=== PATIENT | male | born 1995 | race Caucasian/White ===

== ENCOUNTER 2024-06-25 18:47 | Emergency (ER) | payer OTHER, SELFPAY ==
--- OUTSIDE RECORDS SUMMARY | 2024-06-25 18:49 | XMS_ITS | Clinical Summary ---
Author Organization [facility] Address [address] [place] [address] Phone Care Team Providers Care Jack Frame Tender Name Role Phone Kayden Casper Primary Care Provider [phone] Social History Tobacco Use Types Packs/Day Years Used Date Smoking Tobacco: Never Assessed Sex and Gender Information Value Date Recorded Sex Assigned at Not on file Legal Sex Male 10:21 PM CDT Gender Identity Not on file Sexual Orientation Not on file Plan of Treatment Health Maintenance Due Date Last Done Comments Hepatitis C Virus (HCV) Screening 1993 TdaP Immunization 1993 Hepatitis B Immunization (1 of 3 - 19+ 3-dose series) 2012 Influenza Immunization (#1) 2023 SARS-COV-2 Immunization ( - 2023- season) 2023 Respiratory Syncytial Virus (RSV) Immunization (Adult) (1 - 1-dose 75+ series) 2068 Meningococcal Immunization (ACWY) Aged Out No longer eligible based on patient's age to complete this topic Pneumococcal Immunization Combined Aged Out No longer eligible based on patient's age to complete this topic Rotavirus Immunization Aged Out No lo nger eligible based on patient's age to complete this topic Care Teams Jack Frame Tender Relationship Specialty Start Date End Date Kayden Casper PAC [address] [place] [address] PCP - General Physician Manager Grant 09/24/16
--- OUTSIDE RECORDS SUMMARY | 2024-06-25 18:49 | XMS_ITS | Clinical Summary ---
Author Organization [facility] Address [address] [place] [address] Care Team Providers Care Pad Assembler Name Role Phone Kayden Casper Primary Care Provider [phone] Allergies No known active allergies Medications aspirin 325 mg EC tablet Take 1 tablet by mouth every 12 hours until finished 30 tablet 12/23/2017 Active HYDROcodone-manjit taminophen (NORCO) 5-325 mg per tabletIndicatio ns:Pain Take 1-2 tablets by mouth every 4-6 hours as needed for pain 13 tablet 12/23/2017 Active ascorbic acid (VITAMIN C) 500 mg tablet,chewable Take 1 tablet by mouth 2 times daily until finished 60 tablet/chew tab 12/23/2017 Active Active Problems Problem Noted Date Diagnosed Date Acute lateral meniscus tear of right knee 2017 Overview (12/16/2017): Added automatically from request for surgery [id number] Left knee pain 12/16/2017 Overview (12/16/2017): Added automatically from request for surgery [id number] Recurrent dislocation of left patella 12/16/2017 Overview (12/16/2017): Added automatically from request for surgery [id number] Loose body of left knee 12/16/2017 Overview (12/16/2017): Added automatically from request for surgery [id number] Surgical History Surgery Date Site/Laterality Comments APPENDECTOMY Family History Medical History Relation Name Comments No Known Problems Brother No Known Problems Daughter No Known Problems Father No Known Problems Mother No Known Problems Other No Known Problems Sister No Known Problems Son Relation Name Status Comments Brother Daughter Father Mother Other Sister Son Social History Tobacco Use Types Packs/Day Years Used Date Smoking Tobacco: Never Smokeless Tobacco: Never Alcohol Use Standard Drinks/Week Comments Yes 0 (1 standard drink = 0.6 oz pur e alcohol) occasionally Sex and Gender Information Value Date Recorded Sex Assigned at Not on file 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 Gender Identity Not on file Sexual Orientation Not on file Obstetrics History Last Filed Vital Signs Vital Sign Reading Time Taken Comments Blood Pressure 140/93 09/09/2018 3:33 PM CDT Pulse 84 09/09/2018 3:33 PM CDT Temperature 36.3 C (97.4 F) 12/31/2017 4:00 PM CDT Respiratory Rate 18 12/31/2017 4:00 PM CDT Oxygen Saturation 98% 12/31/2017 4:00 PM CDT Inhaled Oxygen Concentration - - Weight 94.5 kg (208 lb 6.4 oz) 09/09/2018 3:33 P M CDT Height 172.7 cm (5' 8 ) 09/09/2018 3:33 PM CDT Body Mass Index 31.69 09/09/2018 3:33 PM CDT Plan of Treatment Not on file Medical Devices Implanted Type Area Service Promoter Salesperson Device Identifier Shelf Expiration Date Model / Serial / Lot Allosource [id number] Frozen Aseptic Graft Soft Tissue Posterior Tibialis Tendon - [id number] - [id number] Implanted:Qty: 1 on 12/31/2017 by Bert Adkins MD at [facility] Left: Knee [employer] 01/11/2022 [id number] / [id number] / Description:Wasted 14.7cm le ngth Implant total length: 29.4cm Single Diameter: 5.5mm Folded Diameter: 9mm [employer] Ar-1360c-Cp 4.5mm 6mm Cannulated Drill Guidepin Interference Screw Reamer - [id number] Implanted:Qty: 1 on 12/31/2017 by Bert Adkins MD at [facility] Left: Knee [employer] 08/18/2019 AR-1360C-CP / / [id number] Insurance [employer] OPEN ACCESS Care Teams Pad Assembler Relationship Specialty Start Date End Date Kayden Casper PA [address] [place] [address] PCP - General 06/10/16
--- OUTSIDE RECORDS SUMMARY | 2024-06-25 18:49 | XMS_ITS | Referral Summary ---
Author Organization [facility] Address [address] [place] [address] Care Team Providers Care Barrel Roller Operator Name Role Phone Kayden Casper Primary Care Provider [phone] Allergies No known active allergies Medications aspirin [...] (12/16/2017): Added automatically from request for surgery [id number] Left knee pain 12/16/2017 Overview (12/16/2017): Added automatically from request for surgery [id number] Recurrent dislocation of left patella 12/16/2017 Overview (12/16/2017): Added automatically from request for surgery [id number] Loose body of left knee 12/16/2017 Overview (12/16/2017): Added automatically from request for surgery [id number] Social History Tobacco Use Types Packs/Day Years Used Date Smoking Tobacco: Never Smokeless Tobacco: Never Alcohol Use Standard Drinks/Week Comments Yes 0 (1 standard drink = 0.6 oz pur e alcohol) occasionally Sex and Gender Information Value Date Recorded Sex Assigned at Not on file 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 Gender Identity Not on file Sexual Orientation Not on file Last Filed Vital Signs Vital Sign Reading [...] on file Medical Devices Implanted Type Area Chief Dispatcher Device Identifier Shelf Expiration Date Model / Serial / Lot Allosource [id number] Frozen Aseptic Graft Soft Tissue Posterior Tibialis Tendon - [id number] - [id number] Implanted:Qty: 1 on 12/31/2017 by Bert Adkins MD at [facility] Left: Knee [employer] 01/11/2022 [id number] / [id number] / Description:Wasted 14.7cm le ngth Implant total length: 29.4cm Single Diameter: 5.5mm Folded Diameter: 9mm [employer] Ar-1360c-Cp 4.5mm 6mm Cannulated Drill Guidepin Interference Screw Reamer - [id number] Implanted:Qty: 1 on 12/31/2017 by Bert Adkins MD at [facility] Left: Knee [employer] 08/18/2019 GUERO-1360C-CP / / [id number] Insurance [facility] [address] OPEN ACCESS Care Teams Barrel Roller Operator Relationship Specialty Start Date End Date Kayden Casper PA [address] [place] [address] PCP - General 06/10/16
[2024-06-25 18:59] VITALS: BP 150/98; PULSE 79; RESP 16; TEMP 36.4; O2SAT 99
--- NOTE | 2024-06-25 19:12 | ED.GENADULT ---
HPI - General Adult General Chief complaint: Wound/Laceration Stated complaint: Right hand finger lac Source: patient Mode of arrival: ambulatory Limitations: no limitations History of Present Illness HPI narrative: Patient presents for evaluation of a laceration to the 3rd digit of the right hand. He cut himself while doing dishes 2 hours ago. He cleaned the laceration well known applied a dressing. He reassessed the wound about an hour after placing the dressing and noted bleeding, which prompted him to come in for further evaluation. He denies loss of ROM. States pain is mild, without numerical rating or descriptive quality. Denies paresthesias. He is right hand dominant. He believes his last tetanus was in 2014. Related Data Home Medications ?Medication ?Instructions ?Recorded ?Confirmed ?Last Taken ?Type escitalopram oxalate .ROUTE 06/25/24 Unknown History Allergies Allergy/AdvReac Type Severity Reaction Status Date / Time No Known Allergies Allergy Verified 06/25/24 18:55 Review of Systems Review of Systems: CONSTITUTIONAL: Denies fever, chills, or sweats. EYES: Denies visual changes, redness, or discharge. ENT: Denies rhinorrhea, congestion, sore throat, or otalgia. CARDIOVASCULAR: Denies chest pain, palpitations, or edema. RESPIRATORY: Denies cough or dyspnea. GASTROINTESTINAL: Denies abdominal pain, nausea, vomiting, or diarrhea. GENITOURINARY: Denies dysuria or hematuria. SKIN: Reports laceration to the 3rd digit of the right hand MUSCULOSKELETAL: Denies back pain, joint pain, or myalgia. NEUROLOGIC: Denies headache, numbness, dizziness, or weakness. PSYCHIATRIC: Denies anxiety or depression. [facility] Past Medical History Medical History Depression Surgical History Surgical History No pertinent past surgical history Family History Family History (Updated 06/25/24 @ 20:19 by BRADLY Ott, HARJIT) Mother Family history non-contributory Social History Social History Smoking status: Never smoker Living arrangements: with family Gender identity (if verbalized by the patient): Male Sexual Orientation (if Verbalized by the Patient): Straight or Heterosexual Spiritual care concerns: No Exam Narrative: GENERAL: Well-appearing, well-nourished, and in no acute distress. HEAD: Normocephalic, atraumatic. EYES: PERRLA and EOMI. ENT: Nares clear, no rhinorrhea or epistaxis. Mucous membranes moist. Oropharynx without tonsillar hypertrophy exudate or other lesions. Bilateral TMs pearly keenan nonbulging NECK: Supple. No adenopathy or masses. No carotid bruits or JVD CHEST: Clear to auscultation. No respiratory distress. No wheezes rales or rhonchi HEART: Regular rate and rhythm. No murmur heard. Normal peripheral pulses. ABDOMEN: Soft, nontender, nondistended, normal active bowel sounds. EXTREMITIES: Normal range of motion. No edema. SKIN: There is a 4 mm laceration of flat formation to the 3rd digit of the right hand NEURO: No focal deficits. Alert and oriented x3. PSYCH: Normal mood and affect. Course Course Emergency Course: This is a 29-year-old male who presented for evaluation of a laceration to the 3rd digit of the right hand. Wound was cleaned and closed with 2 sutures. Patient tolerated well. Was updated on tetanus. He was provided with a splint. Will follow up with his primary care provider. Advised on wound care. DC with cephalexin. Go to the ER for worsening symptoms. Patient in agreement with plan of care Level of Care: Express Care Visit Vital Signs Vital signs: Vital Signs Temperature 36.4 C 06/25/24 18:59 Pulse Rate 79 06/25/24 18:59 Respiratory Rate 16 06/25/24 18:59 Blood Pressure 150/98 H 06/25/24 18:59 Pulse Oximetry 99 06/25/24 18:59 Oxygen Delivery Room Air 06/25/24 18:59 Temperature 36.4 C 06/25/24 18:59 Pulse Rate 79 06/25/24 18:59 Respiratory Rate 16 06/25/24 18:59 Blood Pressure 150/98 H 06/25/24 18:59 Pulse Oximetry 99 06/25/24 18:59 Oxygen Delivery Room Air 06/25/24 18:59 Procedures Laceration Laceration 1: Date: 06/25/24 Time: 20:21 Site: hand Size (cm): 0.4 Description: flap Local Anesthetic: lidocaine 1% Amount of anesthesia used (mL): 4 Pre-repair: wound explored and irrigated extensively ====== Skin Level ====== Skin layer closed with: prolene Size (cm): 5-0 Number of sutures: 2 Technique: simple, interrupted ====== Subcutaneous Layer ====== ====== Muscle Layer ====== ====== Tendon Layer ====== Medical Decision Making Vital Signs Vital Signs: Vital Signs Temperature 36.4 C 06/25/24 18:59 Pulse Rate 79 06/25/24 18:59 Respiratory Rate 16 06/25/24 18:59 Blood Pressure 150/98 H 06/25/24 18:59 Pulse Oximetry 99 06/25/24 18:59 Oxygen Delivery Room Air 06/25/24 18:59 Temperature 36.4 C 06/25/24 18:59 Pulse Rate 79 06/25/24 18:59 Respiratory Rate 16 06/25/24 18:59 Blood Pressure 150/98 H 06/25/24 18:59 Pulse Oximetry 99 06/25/24 18:59 Oxygen Delivery Room Air 06/25/24 18:59 Discharge Plan Discharge Clinical Impression: Laceration of right middle finger Patient Disposition: Home, Self-Care Condition: Stable Instructions: Antibiotic Form, Finger Laceration (ED) Patient Language: Tunisian Prescriptions: New cephalexin 500 mg tablet 500 mg PO Q6H Qty: 40 0RF No Action escitalopram oxalate .ROUTE Follow-up/Referrals: Edy Neely MD [Physician] - Time of Disposition: 20:18
[2024-06-25] MEDS: TETANUS,DIPHTHERIA,AC PERTUSSIS ADULT (0.5 ML) BOOSTRIX IM (19:29)
[2024-06-25] MEDS: LIDOCAINE 1% LOCAL INJ 2 ML AMPUL 5 ML INFILTRATE (19:29)
== END 2024-06-25 20:35 | disposition home or self-care (01) ==
PROVIDERS: Emergency Provider Nurse Practitioner
DX: S61.212A Laceration without foreign body of right middle finger without damage to nail, initial encounter (principal); W45.8XXA Other foreign body or object entering through skin, initial encounter; Y93.G1 Activity, food preparation and clean up; Z23 Encounter for immunization
CPT/HCPCS: 12001; 90471; 90715; 99213; G0463; J2003

== ENCOUNTER 2024-08-09 09:28 | Outpatient (CLI) | payer OTHER, SELFPAY ==
--- OUTSIDE RECORDS SUMMARY | 2024-08-09 10:29 | XMS_ITS | Clinical Summary ---
Author Organization [facility] Address [address] [place] [address] Phone Care Team Providers Care Squad Sergeant Name Role Phone Kayden Casper Primary Care Provider [phone] Social History Tobacco Use Types Packs/Day Years [...] age to complete this topic Care Teams Squad Sergeant Relationship Specialty Start Date End Date Kayden Casper PAC [address] [place] [id number] PCP - General Physician Orthopedically Impaired Teacher 09/24/16
--- OUTSIDE RECORDS SUMMARY | 2024-08-09 10:29 | XMS_ITS | Referral Summary ---
Author Organization [facility] Address [address] [place] [address] Care Team Providers Care Director Business Management Name Role Phone Kayden Casper Primary Care Provider [phone] Allergies No known active allergies Medications aspirin [...] (12/16/2017): Added automatically from request for surgery [id number] Left knee pain 12/16/2017 Overview (12/16/2017): Added automatically from request for surgery [id number] Recurrent dislocation of left patella 12/16/2017 Overview (12/16/2017): Added automatically from request for surgery [id number] Loose body of left knee 12/16/2017 Overview (12/16/2017): Added automatically from request for surgery [id number] Social History Tobacco Use Types Packs/Day Years Used Date Smoking Tobacco: Never Smokeless Tobacco: Never Alcohol Use Standard Drinks/Week Comments Yes 0 (1 standard drink = 0.6 oz pur e alcohol) occasionally Sex and Gender Information Value Date Recorded Sex Assigned at Not on file Legal Sex Male 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 Gender Identity Not on file Sexual Orientation [...] on file Medical Devices Implanted Type Area Piling Cutter Device Identifier Shelf Expiration Date Model / Serial / Lot Allosource [id number] Frozen Aseptic Graft Soft Tissue Posterior Tibialis Tendon - [id number] - [id number] Implanted:Qty: 1 on 12/31/2017 by Bert Adkins MD at [facility] Left: Knee [employer] 01/11/2022 [id number] / [id number] / Description:Wasted 14.7cm le ngth Implant total length: 29.4cm Single Diameter: 5.5mm Folded Diameter: 9mm [employer] Ar-1360c-Cp 4.5mm 6mm Cannulated Drill Guidepin Interference Screw Reamer - [id number] Implanted:Qty: 1 on 12/31/2017 by Bert Adkins MD at [facility] Left: Knee [employer] 08/18/2019 GUERO-1360C-CP / / [id number] Insurance [facility] [address] OPEN ACCESS Care Teams Director Business Management Relationship Specialty Start Date End Date Kayden Casper PA [address] [place] [address] PCP - General 06/10/16
--- OUTSIDE RECORDS SUMMARY | 2024-08-09 10:29 | XMS_ITS | Clinical Summary ---
Author Organization [facility] Address [address] [place] [address] Care Team Providers Care Trolley Wire Installer Name Role Phone Kayden Casper Primary Care Provider [phone] Allergies No known active allergies Medications aspirin [...] (12/16/2017): Added automatically from request for surgery [id number] Left knee pain 12/16/2017 Overview (12/16/2017): Added automatically from request for surgery [id number] Recurrent dislocation of left patella 12/16/2017 Overview (12/16/2017): Added automatically from request for surgery [id number] Loose body of left knee 12/16/2017 Overview (12/16/2017): Added automatically from request for surgery [id number] Surgical History Surgery Date Site/Laterality Comments APPENDECTOMY [...] on file 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 Gender Identity Not on file Sexual Orientation [...] on file Medical Devices Implanted Type Area Bung Dropper Device Identifier Shelf Expiration Date Model / Serial / Lot Allosource [id number] Frozen Aseptic Graft Soft Tissue Posterior Tibialis Tendon - [id number] - [id number] Implanted:Qty: 1 on 12/31/2017 by Bert Adkins MD at [facility] Left: Knee [employer] 01/11/2022 [id number] / [id number] / Description:Wasted 14.7cm le ngth Implant total length: 29.4cm Single Diameter: 5.5mm Folded Diameter: 9mm [employer] Ar-1360c-Cp 4.5mm 6mm Cannulated Drill Guidepin Interference Screw Reamer - [id number] Implanted:Qty: 1 on 12/31/2017 by Bert Adkins MD at [facility] Left: Knee [employer] 08/18/2019 AR-1360C-CP / / [id number] Insurance [employer] OPEN ACCESS Care Teams Trolley Wire Installer Relationship Specialty Start Date End Date Kayden Casper PA [address] [place] [address] PCP - General 06/10/16
[2024-08-09 19:51] LABS: Hematocrit 46.8 % (42.0-52.0); Hemoglobin 15.5 g/dL (14.0-18.0); Mean Corpuscular HGB Conc 33.1 g/dl (32-36); Mean Corpuscular Volume 99.8 fl (80-100); Mean Platelet Volume 10.1 fl (7.4-10.4); Platelet Count Result 195 k/mm3 (150-375); Red Blood Count 4.69 M/mm3 (4.6-6.20); Red Cell Distribution Width 12.8 % (11.5-14.5); White Blood Count 7.9 K/mm3 (4.5-10.0)
[2024-08-09 19:53] LABS: Alanine Aminotransferase 47 U/L (6-50); Albumin Level 4.4 g/dL (3.5-5.1); Alkaline Phosphatase 100 U/L (38-126); Anion Gap 8 mmol/L (4-12); Aspartate Amino Transferase 91 U/L (17-59); Bilirubin,Total 0.4 mg/dL (0.2-1.3); Blood Urea Nitrogen 18 mg/dL (9-20); Calcium 9.2 mg/dL (8.4-10.2); Carbon Dioxide 28 mmol/L (22-30); Chloride 101 mmol/L (98-107); Cholesterol 222 mg/dL (0-200); Estimated Glomerular Filt Rate > 60; Glucose 89 mg/dL (65-110); HDL Direct 98 mg/dL; Potassium 4.4 mmol/L (3.4-5.0); Sodium 137 mmol/L (137-145); Triglycerides 60 mg/dL (<150)
[2024-08-09 20:05] LABS: LDL Cholesterol Direct 87 mg/dL
[2024-08-09 20:19] LABS: Vitamin D 25 Hydroxy 16.8 ng/mL
[2024-08-13 07:14] LABS: Vitamin B1 <6 nmol/L (8-30)
[2024-08-13 11:49] LABS: Testosterone Free 62.7 pg/mL (35.0-155.0); Testosterone Total 246 ng/dL (250-1100)
== END 2024-08-09 09:29 | disposition home or self-care (01) ==
LOC: ANHBWCLAB 09:30
PROVIDERS: PCP Nurse Practitioner Adult Health; Visit Provider Nurse Practitioner Adult Health
DX: Z13.9 Encounter for screening, unspecified (principal); R53.83 Other fatigue; F10.90 Alcohol use, unspecified, uncomplicated
CPT/HCPCS: 36415; 80053; 80061; 82306; 82607; 84402; 84403; 84425; 84443; 85027

== ENCOUNTER 2025-02-09 10:13 | Outpatient (CLI) | payer OTHER, SELFPAY ==
--- NOTE | ~2025-02-09 | XR_ITS ---
EXAMINATION: XR shoulder LT min 2V, 02/09/2025 10:18 CDT HISTORY: S49.90XA - Unspecified injury of shoulder and upper arm, ... COMPARISON: No comparisons available. Findings: No acute fracture or malalignment. No significant degenerative changes. Soft tissues unremarkable. Impression: No acute fracture or malalignment. Reviewed, dictated and finalized at location P. Impression: No acute fracture or malalignment.
--- OUTSIDE RECORDS SUMMARY | 2025-02-09 11:11 | XMS_ITS | Clinical Summary ---
Author Organization [facility] Address [address] [place] [address] Care Team Providers Care Manager Stone Name Role Phone Kayden Casper Primary Care Provider [phone] Allergies No known active allergies Medications aspirin [...] (12/16/2017): Added automatically from request for surgery [id number] Left knee pain 12/16/2017 Overview (12/16/2017): Added automatically from request for surgery [id number] Recurrent dislocation of left patella 12/16/2017 Overview (12/16/2017): Added automatically from request for surgery [id number] Loose body of left knee 12/16/2017 Overview (12/16/2017): Added automatically from request for surgery [id number] Surgical History Surgery Date Site/Laterality Comments APPENDECTOMY [...] on file 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 Left: Knee [employer] 01/11/2022 [id number] / [id number] / Description:Wasted 14.7cm le ngth Implant total length: 29.4cm Single Diameter: 5.5mm Folded Diameter: 9mm [employer] Ar-1360c-Cp 4.5mm 6mm Cannulated Drill Guidepin Interference Screw Reamer - [id number] Implanted:Qty: 1 on 12/31/2017 by Bert Adkins MD at [facility] Left: Knee [employer] 08/18/2019 AR-1360C-CP / / [id number] Insurance [employer] OPEN ACCESS Care Teams Manager Stone Relationship Specialty Start Date End Date Kayden Casper PA [address] [place] [address] PCP - General 06/10/16
--- OUTSIDE RECORDS SUMMARY | 2025-02-09 11:11 | XMS_ITS | Clinical Summary ---
Author Organization [facility] Address [address] [place] [address] Phone Care Team Providers Care Fruit And Vegetable Packer Name Role Phone Kayden Casper Primary Care Provider [phone] Social History Tobacco Use Types Packs/Day Years [...] of 3 - 19+ 3-dose series) 2012 Human Papillomavirus (HPV) Immunization (1 - 3-dose SCDM series) 2020 Influenza Immunization (#1) 2024 SARS-COV-2 Immunization ( season) 2024 Respiratory Syncytial Virus (RSV) Immunization (Adult) (1 - 1-dose 75+ series) 2068 Meningococcal Immunization (ACWY) Aged Out No longer eligible based on patient's age to complete this topic Pneumococcal Immunization Combined Aged Out No longer eligible based on patient's age to complete this topic Rotavirus Immunization Aged Out No lo nger eligible based on patient's age to complete this topic Care Teams Fruit And Vegetable Packer Relationship Specialty Start Date End Date Kayden Casper PAC [address] [place] [id number] PCP - General Physician Stone Trimmer 09/24/16
[2025-02-09 19:59] LABS: Alanine Aminotransferase 66 U/L (6-50); Albumin Level 4.4 g/dL (3.5-5.1); Alkaline Phosphatase 75 U/L (38-126); Anion Gap 9 mmol/L (4-12); Aspartate Amino Transferase 59 U/L (17-59); Bilirubin,Total 0.5 mg/dL (0.2-1.3); Blood Urea Nitrogen 17 mg/dL (9-20); Calcium 9.7 mg/dL (8.4-10.2); Carbon Dioxide 28 mmol/L (22-30); Chloride 100 mmol/L (98-107); Cholesterol 232 mg/dL (0-200); Estimated Glomerular Filt Rate > 60; Glucose 91 mg/dL (65-110); HDL Direct 87 mg/dL; Potassium 4.5 mmol/L (3.4-5.0); Sodium 137 mmol/L (137-145); Total Protein 7.4 g/dL (6.3-8.2); Triglycerides 80 mg/dL (<150)
[2025-02-13 11:09] LABS: Vit. B1, Whole Blood 140.4 nmol/L (66.5-200.0)
[2025-02-14 04:07] LABS: Free Testosterone (Direct) 14.0 pg/mL (8.7-25.1)
== END 2025-02-09 10:14 | disposition home or self-care (01) ==
PROVIDERS: PCP Nurse Practitioner Adult Health; Visit Provider Nurse Practitioner Adult Health
DX: S49.90XA Unspecified injury of shoulder and upper arm, unspecified arm, initial encounter (principal); E78.00 Pure hypercholesterolemia, unspecified; R74.8 Abnormal levels of other serum enzymes; E51.9 Thiamine deficiency, unspecified; E55.9 Vitamin D deficiency, unspecified; X58.XXXA Exposure to other specified factors, initial encounter
CPT/HCPCS: 36415; 73030; 80053; 80061; 82306; 84402; 84403; 84425